=== PATIENT | female | born 2000 | race Caucasian/White ===

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

== ENCOUNTER 2023-05-26 17:44 | Emergency (ER) | payer BC, OTHER ==
[2023-05-26] MEDS ORDERED: ACETAMINOPHEN 1000 MG/100 ML BAG IVPB ONE (18:01)
[2023-05-26] MEDS ORDERED: SODIUM CHLORIDE 0.9% 1000 ML INFUS.BAG IV ONE (18:01)
[2023-05-26] MEDS ORDERED: ONDANSETRON 4 MG/2 ML VIAL IVPUSH ONE (18:01)
[2023-05-26 18:08] VITALS: BP 118/71; PULSE 66; RESP 16; TEMP 97.8; BMI 22.4
[2023-05-26] MEDS ORDERED: FAMOTIDINE 20 MG/50 ML IVPB 20 MG/50 ML MG IVPB ONE ×2 (18:16→18:30)
[2023-05-26] MEDS ORDERED: ONDANSETRON 4 MG/2 ML VIAL ONE (18:16)
[2023-05-26] MEDS ORDERED: ACETAMINOPHEN INJECTION 100 ML IVPB ONE (18:16)
[2023-05-26 18:45] LABS: HEMATOCRIT 40.4 % (32.4-45.2); HEMOGLOBIN 13.7 G/dL (10.7-15.3); INR 1.03 (0.83-1.09); MCH 30.7 pg (25.7-33.7); MCHC 33.9 g/dl (32.0-36.0); MEAN CELL VOLUME 90.6 fl (80-96); MEAN PLT VOLUME 8.7 fl (7.5-11.1); PLATELET COUNT 206.3 10^3/uL (134-434); RBC 4.46 10^6/uL (3.60-5.2); RDW 14.2 % (11.6-15.6); WHITE BLOOD COUNT 5.5 10^3/uL (4.0-10.8)
[2023-05-26 18:48] LABS: ACTIVATED PTT 31.1 SECONDS (25.2-36.5)
[2023-05-26 18:55] LABS: ALBUMIN 4.7 g/dl (3.4-5.0); BILIRUBIN,TOTAL 0.4 mg/dl (0.2-1); CALCIUM 9.5 mg/dl (8.5-10.1); CREATININE 0.7 mg/dl (0.6-1.3); POTASSIUM 3.8 mmol/L (3.5-5.1); TOT PROT 7.5 g/dl (6.4-8.2)
[2023-05-26 19:26] LABS: PLATELET ESTIMATE ADEQUATE
[2023-05-26 19:27] LABS: EPITHELIAL CELLS 0-5 /hpf
== END 2023-05-26 20:54 | disposition home or self-care (01) ==
LOC: FER 17:44
PROC: 3E033GC Introduction of Other Therapeutic Substance into Peripheral Vein, Percutaneous Approach (ICD-10-PCS; principal; 2023-05-26)
PROC: 3E033GC Introduction of Other Therapeutic Substance into Peripheral Vein, Percutaneous Approach (ICD-10-PCS; 2023-05-26)
PROC: 3E033GC Introduction of Other Therapeutic Substance into Peripheral Vein, Percutaneous Approach (ICD-10-PCS; 2023-05-26)
DX: R10.31 Right lower quadrant pain (principal); N93.9 Abnormal uterine and vaginal bleeding, unspecified
CPT/HCPCS: 36415; 74177-TC; 76830-TC; 80053; 81003; 81015; 84703; 85027; 85610; 85730; 87086; 99285-25; Q9967

== ENCOUNTER 2024-02-07 13:52 | Emergency (ER) | payer BC, OTHER ==
[2024-02-07 14:08] VITALS: BP 103/53; PULSE 92; RESP 16; TEMP 99; BMI 22.4
[2024-02-07] MEDS ORDERED: FAMOTIDINE 20 MG/50 ML IVPB 20 MG/50 ML MG IVPB ONE (14:11)
[2024-02-07] MEDS ORDERED: ACETAMINOPHEN INJECTION 100 ML IVPB ONE (14:11)
[2024-02-07] MEDS ORDERED: ONDANSETRON 4 MG/2 ML VIAL ONE ×2 (14:11→16:47)
[2024-02-07] MEDS: ONDANSETRON 4 MG/2 ML VIAL IVPUSH ONE ×2 (14:15→16:51)
[2024-02-07] MEDS: SODIUM CHLORIDE 0.9% 500 ML INFUS.BAG IV ONE (14:15)
[2024-02-07] MEDS: FAMOTIDINE 20 MG/50 ML IVPB 20 MG/50 ML MG IVPB ONE (14:20)
[2024-02-07] MEDS: ACETAMINOPHEN 1000 MG/100 ML BAG IVPB ONE (14:33)
[2024-02-07 14:53] LABS: HEMATOCRIT 42.4 % (32.4-45.2); HEMOGLOBIN 13.9 G/dL (10.7-15.3); MCH 30.6 pg (25.7-33.7); MCHC 32.7 g/dl (32.0-36.0); MEAN CELL VOLUME 93.7 fl (80-96); PLATELET COUNT 246.1 10^3/uL (134-434); RBC 4.52 10^6/uL (3.60-5.2); RDW 13.8 % (11.6-15.6); WHITE BLOOD COUNT 11.7 10^3/uL (4.0-10.8)
[2024-02-07 15:11] LABS: PLATELET ESTIMATE ADEQUATE
[2024-02-07 15:16] LABS: ALBUMIN 4.8 g/dl (3.4-5.0); BILIRUBIN,TOTAL 0.6 mg/dl (0.2-1); CALCIUM 9.9 mg/dl (8.5-10.1); CREATININE 0.7 mg/dl (0.6-1.3); POTASSIUM 3.7 mmol/L (3.5-5.1); TOT PROT 7.2 g/dl (6.4-8.2)
[2024-02-07] MEDS ORDERED: LACTATED RINGERS SOLUTION 1000 ML INFUS.BAG IV ONE (16:35)
[2024-02-07 16:38] LABS: EPITHELIAL CELLS 0-5 /hpf; URIC ACID CRYSTALS FEW /hpf (NONE SEEN)
[2024-02-07] MEDS ORDERED: KETOROLAC TROMETHAMINE 30 MG/1 ML VIAL ONE (16:47)
[2024-02-07] MEDS: KETOROLAC TROMETHAMINE 15 MG/ML VIAL IVPUSH ONE (16:51)
== END 2024-02-07 19:10 | disposition home or self-care (01) ==
LOC: FER 13:52
PROC: 3E033GC Introduction of Other Therapeutic Substance into Peripheral Vein, Percutaneous Approach (ICD-10-PCS; principal; 2024-02-07)
PROC: 3E033NZ Introduction of Analgesics, Hypnotics, Sedatives into Peripheral Vein, Percutaneous Approach (ICD-10-PCS; 2024-02-07)
PROC: 3E0333Z Introduction of Anti-inflammatory into Peripheral Vein, Percutaneous Approach (ICD-10-PCS; 2024-02-07)
PROC: 3E033GC Introduction of Other Therapeutic Substance into Peripheral Vein, Percutaneous Approach (ICD-10-PCS; 2024-02-07)
PROC: 3E033GC Introduction of Other Therapeutic Substance into Peripheral Vein, Percutaneous Approach (ICD-10-PCS; 2024-02-07)
DX: R10.31 Right lower quadrant pain (principal); R11.2 Nausea with vomiting, unspecified
CPT/HCPCS: 36415; 71045-TC-FY; 74177-TC; 80053; 81003; 81015; 84703; 85027; 87077; 87086; 99285-25; J0131; Q9967